=== PATIENT | male | born 1955 | race African-American/Black ===

== ENCOUNTER 2019-08-21 19:05 | Emergency (ER) | payer MEDICAID ==
[~2019-08-21] VITALS: Ht 170.2 cm; Wt 70.3 kg
[2019-08-21 20:19] VITALS: BP 135/79
== END 2019-08-22 03:48 | disposition left against medical advice (07) ==
LOC: ER 19:10
DX: R51 Headache (principal); Z53.21 Procedure and treatment not carried out due to patient leaving prior to being seen by health care provider